=== PATIENT | male | born 1980 | race Caucasian/White ===

== ENCOUNTER → 2018-11-06 | Outpatient (CLI) | payer MEDICAID ==
--- NOTE | 2018-11-06 15:53 | XR ---
EXAMINATION TYPE: XR wrist complete LT DATE OF EXAM: 11/06/2018 COMPARISON: NONE HISTORY: Pain TECHNIQUE: Four views submitted. FINDINGS: The osseous structures are intact. The joint spaces are preserved and there is no acute fracture or dislocation. IMPRESSION: 1. No definite acute fracture or dislocation. Slight widening of the scapholunate trapezoid joint wh ich could be developmental. However, Recommend follow-up MRI.
== END | disposition home or self-care (01) ==
LOC: RADXRMAIN 14:43
PROVIDERS: ATTEND Family Medicine
DX: M25.532 Pain in left wrist (principal)

== ENCOUNTER → 2019-02-02 | Outpatient (CLI) | payer MEDICAID ==
--- NOTE | 2019-02-06 08:18 | MR ---
MR left wrist HISTORY: Wrist pain and swelling, clicking Multiplanar multisequence imaging through the left wrist Correlation to film 11/06/2018 There is abnormal immediate signal on T1, increased signal on T2-weighted sequences involving the pro ximal aspect of the scaphoid bone, cartilage irregularity noted at on coronal T2 fat sat image 11 and 12. Some remodeling present at the radiocarpal joint. Fluid signal present at the radial ulnar joint , along the region of the triangular fibrocartilage not well seen in its entirety, possible tear concepción nal T2 fat-sat images 11 and 12 at the foveal attachment. Lunotriquetral ligament felt to be intact. Scapholunate ligament remarkable for disorganized appearance at its dorsal portion, abnormal signal a lso present in the proximal portion of the ligament. Focal intermediate signal on T1, increased signa l on T2 within the lunate suggests a geode. There is some increased signal along the abductor pollici s longus and brevis tendons, possibly reactive, some thickening and edema at the radial aspect of the rest and coronal T2 fat sat image 13 suggests joint sprain. Abnormal increased internal signal also present. IMPRESSION: Possible reactive marrow signal or contusion changes within the proximal scaphoid, suspec t some osteoarthritic change. Scapholunate ligament disruption. Difficult to exclude tear of triangul ar fibrocartilage. Additional findings above.
== END | disposition home or self-care (01) ==
LOC: RADMRIMAIN 08:13
PROVIDERS: ATTEND Nurse Practitioner
DX: S63.592A Other specified sprain of left wrist, initial encounter (principal)

== ENCOUNTER → 2019-02-22 | Outpatient (CLI) | payer MEDICAID ==
[2019-02-22 15:35] LABS: Basophils # (A) 0.1 k/uL (0-0.2); Basophils % (A) 1 %; Eosinophils # (A) 0.1 k/uL (0-0.7); Eosinophils % (A) 2 %; HCT 52.1 % (39.0-53.0); HGB 18.1 gm/dL (13.0-17.5); Lymphocytes # (A) 1.5 k/uL (1.0-4.8); Lymphocytes % (A) 23 %; MCH 31.4 pg (25.0-35.0); MCHC 34.8 g/dL (31.0-37.0); MCV 90.2 fL (80.0-100.0); Monocytes # (A) 0.4 k/uL (0-1.0); Monocytes % (A) 6 %; Neutrophils # (A) 4.3 k/uL (1.3-7.7); Neutrophils % (A) 67 %; Platelet Count 250 k/uL (150-450); RBC 5.77 m/uL (4.30-5.90); RDW 12.6 % (11.5-15.5); WBC 6.4 k/uL (3.8-10.6)
[2019-02-22 18:43] LABS: African American GFR (CKD) 98.9 (60.0-200.0); Albumin 4.9 g/dL (3.80-4.90); Albumin/Globulin Ratio 2.04 (1.60-3.17); Anion Gap 9.8 mmol/L (4.00-12.00); BUN/Creat Ratio 10.91 Ratio (12.00-20.00); Calcium 9.9 mg/dL (8.7-10.3); Carbon Dioxide 28.2 mmol/L (21.6-31.8); Chol/HDL Ratio 3.86; Globulin 2.4 g/dL (1.6-3.3); LDL Cholesterol,Calculated 167.8 mg/dL (0.0-131.0); Non-African American GFR(CKD) 85.3 (60.0-200.0); Potassium 3.7 mmol/L (3.5-5.5); Total Bilirubin 0.6 mg/dL (0.2-1.2); Total Protein 7.3 g/dL (6.2-8.2); VLDL Calculation 32.2 mg/dL (5.00-40.00)
== END | disposition home or self-care (01) ==
LOC: LABWHC1 14:45
PROVIDERS: ATTEND Family Medicine
DX: Z00.00 Encounter for general adult medical examination without abnormal findings (principal)
CPT/HCPCS: 36415; 80053; 80061; 85025

== ENCOUNTER 2019-03-02 13:49 | Day surgery (SDC) | payer MEDICAID ==
[2019-02-28 11:35] VITALS: BMI 24.4
[~2019-03-02 13:49] MED LIST: DEXAMETHASONE SOD PHOSPHATE 10 MG/ML 1 ML VIAL IV ONE; MIDAZOLAM 2 MG/2 ML VIAL IV PRN; SCOPOLAMINE 1.5MG/72HR PATCH TRANSDERM ONE
[2019-03-02] MEDS: ONDANSETRON 4 MG/2 ML VIAL IVP ONE ×2 (14:20→23:45)
[2019-03-02] MEDS: LACTATED RINGERS 1,000 ML IV SCH (15:02)
[2019-03-02] MEDS ORDERED: MIDAZOLAM 2 MG/2 ML VIAL IV ONE (15:19)
[2019-03-02] MEDS ORDERED: fentaNYL (PF) 50 MCG/ML 2 ML AMP IV ONE (15:19)
--- NOTE | 2019-03-02 16:03 | P.ANPRN ---
Procedure Note - Anesthesia - Nerve Block Performed Left Infraclavicular Single Time Out Performed: Yes Date of Procedure: 03/02/19 Procedure Start Time: : Procedure Stop Time: : Location of Patient: PreOp Indication: Acute Post-Operative Pain, Dx/Pain Location, Requested by Surgeon Sedation Type: Sedate with meaningful contact maintained Position: Supine Catheter: None Needle Types: Pajunk Needle Gauge: 21 Ultrasound used to visualize needle placement: Yes Ultrasound used to observe medication spread: Yes Injectate: Other (see comment) (10ml 0.5% Ropivacaine + 10ml 2% Lidocaine 1:100,000 epi) Blood Aspirated: No Pain Paresthesia on Injection Noted: No Resistance on Injection: Normal Image Stored and Saved: Yes Events: Uneventful and Well Tolerated
[2019-03-02] MEDS ORDERED: SUCCINYLCHOLINE CHLORIDE 100 MG/5 ML SYR IV ONE (17:47)
[2019-03-02] MEDS ORDERED: MIDAZOLAM 2 MG/2 ML VIAL ONE ×2 (17:47)
[2019-03-02] MEDS ORDERED: fentaNYL (PF) 50 MCG/ML 2 ML AMP ONE (17:47)
[2019-03-02] MEDS ORDERED: ROPIVACAINE 5 MG/ML 30 ML VIAL ONE (17:47)
[2019-03-02] MEDS ORDERED: LIDOCAINE 2%-EPI 1:100,000 20 ML VIAL ONE (17:47)
[2019-03-02] MEDS ORDERED: LIDOCAINE 1% INJ 10MG/ML (20 ML MDV) ONE (17:47)
[2019-03-02] MEDS ORDERED: PROPOFOL 10 MG/ML 20 ML VIAL IV ONE ×2 (17:47)
[2019-03-02] MEDS ORDERED: LACTATED RINGERS 1,000 ML IV ONE (18:45)
[2019-03-02] MEDS ORDERED: LIDOCAINE 1%-EPI 1:100,000 20 ML VIAL SQ ONE ×2 (22:25)
[2019-03-02] MEDS ORDERED: ROPIVACAINE 5 MG/ML 30 ML VIAL MISCELLANE ONE ×2 (22:32)
[2019-03-02] MEDS ORDERED: HYDROcodone/APAP 5-325MG 1 EACH TAB PO PRN (23:38)
[2019-03-02] MEDS: HYDROmorphone 0.5 MG/0.5 ML SYRINGE IVP PRN ×3 (23:40→23:55)
[2019-03-02 23:48] VITALS: RESP 16
[2019-03-02] MEDS ORDERED: diphenhydrAMINE 50 MG/ML 1 ML VIAL IVP ONE (23:50)
[2019-03-03] MEDS: HYDROmorphone 0.5 MG/0.5 ML SYRINGE IVP PRN
[2019-03-03] MEDS: LACTATED RINGERS 1,000 ML IV SCH (02:18)
[2019-03-03] MEDS: HYDROcodone/APAP 5-325MG 1 EACH TAB PO PRN ×2 (05:53→07:03)
[2019-03-03 08:05] VITALS: BP 122/78; PULSE 77; TEMP 98
--- NOTE | 2019-03-03 09:27 | XR ---
Fluoroscopy HISTORY: Wrist arthroscopy and hardware placement 1 minute 44 seconds fluoroscopy time supplied to the referring clinician. 4 intraoperative C-arm earle ges document the procedure. See dictated report from orthopedic surgery.
--- NOTE | 2019-03-03 09:31 | FL ---
Fluoroscopy HISTORY: Wrist arthroscopy and hardware placement 1 minute 44 seconds fluoroscopy time supplied to the referring clinician. 4 intraoperative C-arm imag es document the procedure. See dictated report from orthopedic surgery.
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
== END 2019-03-03 10:30 | disposition home or self-care (01) ==
LOC: OR 13:49 → 4SSUR 23:23 → OR 03-03 10:30
PROVIDERS: ATTEND Orthopaedic Surgery
DX: S63.8X2A Sprain of other part of left wrist and hand, initial encounter (principal); M25.332 Other instability, left wrist; M65.9 Synovitis and tenosynovitis, unspecified; M94.232 Chondromalacia, left wrist; F98.8 Other specified behavioral and emotional disorders with onset usually occurring in childhood and adolescence; F17.200 Nicotine dependence, unspecified, uncomplicated; Z79.4 Long term (current) use of insulin; Z79.899 Other long term (current) drug therapy; Z88.8 Allergy status to other drugs, medicaments and biological substances; Z90.49 Acquired absence of other specified parts of digestive tract; Z98.890 Other specified postprocedural states; V86.99XA Unspecified occupant of other special all-terrain or other off-road motor vehicle injured in nontraffic accident, initial encounter
CPT/HCPCS: 64415; 76942

== ENCOUNTER 2024-02-07 10:12 | Day surgery (SDC) | payer BC, MEDICAID ==
[~2024-02-07 10:12] MED LIST changes: -DEXAMETHASONE SOD PHOSPHATE 10 MG/ML 1 ML VIAL IV ONE; +LACTATED RINGERS 1,000 ML IV SCH; +LIDOCAINE 1% (10MG/ML) FOR IV START INTRADERMA PRN; -MIDAZOLAM 2 MG/2 ML VIAL IV PRN; -SCOPOLAMINE 1.5MG/72HR PATCH TRANSDERM ONE
[2024-02-07] MEDS: IV FLUID CONTINUATION 1,000 ML IV ONE (10:31)
[2024-02-07 10:51] VITALS: TEMP 98.1
[2024-02-07] MEDS ORDERED: LIDOCAINE 1% INJ 10MG/ML (20 ML MDV) ONE (11:33)
[2024-02-07] MEDS ORDERED: PROPOFOL 10 MG/ML 20 ML VIAL IV ONE (11:33)
--- NOTE | 2024-02-07 11:37 | P.GSHP ---
History of Present Illness H&P Date: 02/07/24 Chief Complaint: History of colon polyps 43-year-old male here for colonoscopy. Patient with prior history of colon polyps. No bowel complaints. No family history of colon cancer. Past Medical History Past Medical History: GERD/Reflux Additional Past Medical History / Comment(s): CHRONIC BACK PAIN, STATES HE SNORES., NAUSEA. History of Any Multi-Drug Resistant Organisms: None Reported Past Surgical History: No Surgical Hx Reported Additional Past Surgical History / Comment(s): COLONOSCOPY, EGD, Lt. wrist fracture repair, mole removal Past Anesthesia/Blood Transfusion Reactions: Family History of Problems w/ Anesthesia Additional Past Anesthesia/Blood Transfusion Reaction / Comment(s): MOTHER PREVIOUS PROBLEM WITH INTUBATION AND NAUSEA Smoking Status: Never smoker - Past Family History Mother Family Medical History: No Reported History Brother(s) Family Medical History: Cancer Medications and Allergies Home Medications Medication Instructions Recorded Confirmed Type Omeprazole [PriLOSEC] 20 mg PO DAILY 09/12/15 02/07/24 History Ibuprofen 400 mg PO DIRECTED PRN 02/28/19 02/07/24 History Lisdexamfetamine Dimesylate 70 mg PO QAM 02/28/19 02/07/24 History [Vyvanse] Allergies Allergy/AdvReac Type Severity Reaction Status Date / Time prochlorperazine AdvReac MUSCLE Verified 02/07/24 10:31 [From Compazine] SPASMS prochlorperazine edisylate AdvReac MUSCLE Verified 02/07/24 10:31 [From Compazine] SPASMS prochlorperazine maleate AdvReac MUSCLE Verified 02/07/24 10:31 [From Compazine] SPASMS Surgical - Exam Vital Signs Temp Pulse Resp BP Pulse Ox 98.1 F 66 16 124/78 98 02/07/24 10:50 02/07/24 10:50 02/07/24 10:50 02/07/24 10:50 02/07/24 10:50 Physical exam: General: Well-developed, well-nourished HEENT: Normocephalic, sclerae nonicteric Abdomen: Nontender, nondistended Extremities: No edema Neuro: Alert and oriented Assessment and Plan (1) Colon polyps Narrative/Plan: Will proceed with colonoscopy at this time. Current Visit: Yes Status: Acute Code(s): K63.5 - POLYP OF COLON SNOMED Code(s): 94310411
--- NOTE | 2024-02-07 11:55 | P.PCN ---
Date of Procedure: 02/07/24 Procedure(s) Performed: PREOPERATIVE DIAGNOSIS: History of colon polyps POSTOPERATIVE DIAGNOSIS: Descending colon polyp x 3, rectal polyp PROCEDURE: Colonoscopy with snare polypectomy ANESTHESIA: MAC SURGEON: David Rossi M.D. SPECIMENS: Polyps ENDOSCOPIC PROCEDURE: The patient was placed on the endoscopy table in the left decubitus position. The Olympus colonoscope was inserted into the anus and passed under direct visualization to the base of the cecum. The appendiceal orifice was visualized. From that point the scope was slowly withdrawn inspecting all surfaces carefully. There were no neoplastic inflammatory or polypoid lesions throughout the cecum, ascending, and transverse colon. In the descending colon there were 3 polyps in close proximity that were removed using the snare with cautery technique. The remainder of the descending and sigmoid colon appeared normal. In the rectum another small polyp was seen and removed in a similar fashion. There was no visible diverticulosis. Digital rectal examination was normal. The patient was taken to the recovery room in stable condition per anesthesia guidelines. RECOMMENDATIONS: Await biopsy results. Will contact patient with timing for next colonoscopy likely 5 years.
[2024-02-07 12:15] VITALS: BP 108/66; PULSE 59; RESP 16
== END 2024-02-07 12:35 | disposition home or self-care (01) ==
LOC: ORWHC2ENDO 10:12
PROVIDERS: ATTEND Surgery
DX: Z12.11 Encounter for screening for malignant neoplasm of colon (principal); D12.4 Benign neoplasm of descending colon; D12.8 Benign neoplasm of rectum; K21.9 Gastro-esophageal reflux disease without esophagitis; F90.9 Attention-deficit hyperactivity disorder, unspecified type; Z91.89 Other specified personal risk factors, not elsewhere classified; Z79.899 Other long term (current) drug therapy; Z86.0100 Personal history of colon polyps, unspecified; Z88.8 Allergy status to other drugs, medicaments and biological substances
CPT/HCPCS: 88305; 45385; J2003; J2704